=== PATIENT | male | born 1990 | race African-American/Black ===

== ENCOUNTER 2025-04-26 05:04 | Emergency (ER) | payer SELFPAY ==
[~2025-04-26] VITALS: Ht 172.7 cm; Wt 79.0 kg
[2025-04-26 05:15] VITALS: O2SAT 97
[2025-04-26 05:34] VITALS: BP 110/71; PULSE 67; RESP 18; TEMP 36.7; O2SAT 97
[2025-04-26] MEDS ORDERED: DOXY100C5 PO (05:41)
[2025-04-26] MEDS ORDERED: TERB30CR8 TP (05:51)
[2025-04-26] MEDS: CEFTRIAXONE SODIUM 1G VIAL IM ONE (06:01)
[2025-04-26] MEDS: DOXYCYCLINE HYCLATE 100MG CAPSULE PO ONE (06:01)
== END 2025-04-26 06:24 | disposition home or self-care (01) ==
LOC: ER 05:04
DX: A64 Unspecified sexually transmitted disease (principal); B35.3 Tinea pedis; Z90.49 Acquired absence of other specified parts of digestive tract
CPT/HCPCS: 36415; 96372; 99283; J0696; Z7610